=== PATIENT | female | born 2005 | race Caucasian/White ===

== ENCOUNTER 2024-05-14 09:41 | Inpatient (IN) ==
[2024-05-14 12:17] LABS: Urine Bacteria Absent /HPF (Absent); Urine Red Blood Cell 3+(>10/hpf) /HPF (0-Trace); Urine Squamous Epithelial Cell Present /HPF (Absent); Urine White Blood Cell 3+(>20/hpf) /HPF (0-Trace)
[2024-05-14 12:19] LABS: Urine Appearance Extra Turbid; Urine Color Red
[2024-05-14 12:20] LABS: ABS Lymphocytes 1.3 10^3/uL (1.0-4.8); ABS Monocytes 0.4 10^3/uL (0.0-0.9); ABS Neutrophils 3.9 10^3/uL (1.5-7.6); Eosinophil % 0.4 %; Hematocrit 36.9 % (35-45); Hemoglobin 11.9 g/dL (11.5-14.3); Lymphocyte % 23.7 %; Mean Corpuscular Hemoglobin 24.9 pg (27-33); Mean Corpuscular Hgb Conc 32.3 g/dL (31-36); Mean Corpuscular Volume 76.9 fL (80-97); Mean Platelet Volume 7.1 fL (7.5-11.2); Platelet Count 287 10^3/uL (150-450); Red Cell Distribution Width 14.9 % (12-17); White Blood Count 5.6 10^3/uL (3.8-11.8)
[2024-05-14 12:32] LABS: Urine Specific Gravity 1.032 (1.002-1.030)
[2024-05-14 12:45] LABS: ALT 12 U/L (7-52); AST 17 U/L (13-39); Acetaminophen < 15 mcg/mL; Albumin 4.6 g/dL (3.5-5.7); Albumin/Globulin Ratio 1.7 (1-3); Alcohol, S < 13 mg/dL (<13); Alkaline Phosphatase 78 U/L (35-149); Anion Gap 9 mmol/L (2-16); Blood Urea Nitrogen 10 mg/dL (6-24); CO2 Carbon Dioxide 23 mmol/L (22-32); Calcium 9.5 mg/dL (8.6-10.3); Chloride 105 mmol/L (101-111); Globulin 2.7 g/dL (2-4); Glucose 92 mg/dL (70-100); Potassium 4.5 mmol/L (3.5-5.0); Salicylate < 2.50 mg/dL (<30); Sodium 137 mmol/L (135-145); Total Bilirubin 0.9 mg/dL (0.2-1.0); Total Protein 7.3 g/dL (6.4-8.9); eGFR CKD-EPI 127.7 (>60)
[2024-05-14 12:52] LABS: HCG Pregnancy < 0.60 mIU/mL
[2024-05-14 13:01] LABS: TSH Ultra Thyroid Stim Horm 0.61 mcIU/mL (0.34-5.60)
[2024-05-14 13:09] LABS: Urine Benzodiazepine Screen None Detected (None Detect); Urine Cannabinoids Screen None Detected (None Detect); Urine Opiates Screen None Detected (None Detect)
[2024-05-14] MEDS ORDERED: Al Hydrox/Mg Hydrox/Simet LIQ 30 ML UDC PO PRN (13:23)
[2024-05-15 08:14] LABS: HDL Cholesterol 58.3 mg/dL
[2024-05-15] MEDS: CMCS:Estradiol 1 mg TAB (NF) PO SCH (10:09)
== END 2024-05-18 14:30 | disposition home or self-care (01) | DRG 754 ==
LOC: ED 09:41 → EDHOLD 13:23 → BSU 15:25
PROVIDERS: ADMIT Psychiatry & Neurology Psychiatry; ATTEND Psychiatry & Neurology Psychiatry